=== PATIENT | male | born 1935 | race Hispanic/Latino ===

== ENCOUNTER 2018-03-22 07:09 | Inpatient (IN) | payer MEDICARE ==
[~2018-03-22] VITALS: Ht 185.4 cm; Wt 77.1 kg
[2018-03-22 07:48] LABS: BASOPHILS % (AUTO) 0.1 % (0.0-5.0); EOSINOPHILS % (AUTO) 0.4 % (0.0-8.0); HEMATOCRIT 42.3 % (42-54); LYMPHOCYTES % (AUTO) 1.2 % (21.0-51.0); MEAN CORPUSCULAR HEMOGLOBIN 30.7 pg (27.0-33.0); MEAN CORPUSCULAR HGB CONC 33.9 g/dL (32.0-36.0); MEAN CORPUSCULAR VOLUME 90.7 fL (79-99); MONOCYTES % (AUTO) 0.8 % (3.0-13.0); NEUTROPHILS % (AUTO) 97.5 % (40.0-77.0); PLATELET COUNT (AUTO) 177 K/uL (130-400); RED BLOOD CELL COUNT(AUTO) 4.67 MIL/uL (4.50-6.20); RED CELL DISTRIBUTION WIDTH 14.4 % (11.0-15.5); WHITE BLOOD COUNT (AUTO) 11.5 K/uL (4.8-10.8)
[2018-03-22 08:18] LABS: BILIRUBIN,TOTAL 1.2 mg/dL (0.2-1.0)
[2018-03-22 08:32] LABS: ALBUMIN 3.5 g/dL (3.5-5.0); CREATININE 1.8 mg/dL (0.5-1.5); TOTAL PROTEIN, SERUM 6.6 g/dL (6.0-8.3)
[2018-03-22 08:36] LABS: POTASSIUM 2.9 mmol/L (3.5-5.1)
[2018-03-22] MEDS ORDERED: LEVOFLOXACIN 500 MG/D5W 100 ML 100 ML ONE (10:22)
[2018-03-22] MEDS ORDERED: POTASSIUM BICARB/CIT AC 25 MEQ TABLET.EFF ONE (10:22)
[2018-03-22] MEDS ORDERED: METRONIDAZOLE 500MG/100ML BAG 100 ML ONE (10:23)
[2018-03-22] MEDS: SODIUM CHLORIDE 0.9% 1000ML 1,000 ML IV SCH ×2 (11:00→20:14)
[2018-03-22 11:59] LABS: APPEARANCE,URINE Clear (CLEAR); BILIRUBIN,URINE Negative (NEGATIVE); COLOR,URINE Yellow (YELLOW); GLUCOSE, URINE (UA) Negative (NEGATIVE); KETONES,URINE Negative (NEGATIVE); LEUKOCYTE ESTERASE ,URINE Negative (NEGATIVE); NITRATE,URINE Negative (NEGATIVE); OCCULT BLOOD,URINE Negative (NEGATIVE); PROTEIN,URINE Negative (NEGATIVE)
[2018-03-22 16:31] VITALS: BP 122/66
[2018-03-22] MEDS ORDERED: SODIUM CHLORIDE 0.9% 10 ML VIAL IVP SCH (17:00)
[2018-03-22] MEDS ORDERED: ACETAMINOPHEN 325 MG TAB PO PRN ×2 (17:00)
[2018-03-22] MEDS ORDERED: ONDANSETRON HCL 4 MG/2 ML VIAL IVP PRN (17:00)
[2018-03-22] MEDS ORDERED: LIDOCAINE HCL-MPF 1% 2ML VIAL IVP PRN (20:00)
[2018-03-22] MEDS ORDERED: HYDRALAZINE HCL 20 MG/ML VIAL IM PRN (20:00)
[2018-03-22] MEDS ORDERED: POTASSIUM CHLORIDE 10% ELIXIR 20 MEQ/15 ML UDCUP PO PRN (20:00)
[2018-03-22 20:05] VITALS: BP 128/69
[2018-03-22] MEDS: METRONIDAZOLE 500MG/100ML BAG 100 ML IVPB SCH (20:15)
[2018-03-22] MEDS: FAMOTIDINE/PF 20 MG/2 ML VIAL IV SCH (20:15)
[2018-03-22 20:52] LABS: CREATINE KINASE MB 2.2 ng/mL (0.5-3.6); TROPONIN I 0.09 ng/mL (0.00-0.06)
[2018-03-22] MEDS: POTASSIUM CHLORIDE 20MEQ/100ML 100 ML IV PRN (21:16)
[2018-03-22] MEDS: POTASSIUM CHLORIDE 20 MEQ ERTAB PO PRN (21:17)
[2018-03-22] MEDS ORDERED: FENO145T37 PO (21:30)
[2018-03-22] MEDS ORDERED: CETI-101 PO (21:30)
[2018-03-22] MEDS ORDERED: OMEP20CA10 PO (21:30)
[2018-03-22] MEDS ORDERED: ROSU20TA PO (21:30)
[2018-03-23] VITALS (7 sets, daily range): BP systolic 104–148; BP diastolic 57–87
[2018-03-23] MEDS: POTASSIUM CHLORIDE 20 MEQ ERTAB PO PRN (01:19)
[2018-03-23 04:33] LABS: HEMATOCRIT 38.2 % (42-54); MEAN CORPUSCULAR HEMOGLOBIN 31.6 pg (27.0-33.0); MEAN CORPUSCULAR HGB CONC 34.1 g/dL (32.0-36.0); MEAN CORPUSCULAR VOLUME 92.6 fL (79-99); PLATELET COUNT (AUTO) 141 K/uL (130-400); RED BLOOD CELL COUNT(AUTO) 4.12 MIL/uL (4.50-6.20); RED CELL DISTRIBUTION WIDTH 14.9 % (11.0-15.5); WHITE BLOOD COUNT (AUTO) 19.2 K/uL (4.8-10.8)
[2018-03-23 05:03] LABS: CREATINE KINASE MB 2.6 ng/mL (0.5-3.6); CREATININE 1.7 mg/dL (0.5-1.5); POTASSIUM 4.2 mmol/L (3.5-5.1); TROPONIN I 0.1 ng/mL (0.00-0.06)
[2018-03-23] MEDS: SODIUM CHLORIDE 0.9% 1000ML 1,000 ML IV SCH ×2 (06:18→20:43)
[2018-03-23] MEDS: FAMOTIDINE/PF 20 MG/2 ML VIAL IV SCH ×2 (09:09→20:44)
[2018-03-23] MEDS: METRONIDAZOLE 500MG/100ML BAG 100 ML IVPB SCH ×3 (09:09→20:43)
[2018-03-23] MEDS ORDERED: ACETAMINOPHEN-CODEINE 300/30MG TAB PO PRN (09:45)
[2018-03-23] MEDS ORDERED: MORPHINE SULFATE 2 MG/ML 1ML SYG IVP PRN (09:45)
[2018-03-23] MEDS: LEVOFLOXACIN 250 MG/D5W 50ML 50 ML IVPB SCH (10:33)
[2018-03-23] MEDS: CEFTRIAXONE SODIUM 1 GM IV SCH (14:45)
[2018-03-23] MEDS: FENOFIBRATE NANOCRYSTALLIZED 145 MG TAB PO SCH (20:39)
[2018-03-23] MEDS: ATORVASTATIN CALCIUM 10 MG TABLET PO SCH (20:39)
[2018-03-24] MEDS: SODIUM CHLORIDE 0.9% 1000ML 1,000 ML IV SCH (02:04)
[2018-03-24 03:30] VITALS: BP 146/75
[2018-03-24 06:12] LABS: HEMATOCRIT 37.4 % (42-54); MEAN CORPUSCULAR VOLUME 91.4 fL (79-99); NUCLEATED RED BLOOD CELLS 0.1 % (0.0-0.19); PLATELET COUNT (AUTO) 124 K/uL (130-400); RED BLOOD CELL COUNT(AUTO) 4.09 MIL/uL (4.50-6.20); RED CELL DISTRIBUTION WIDTH 14.7 % (11.0-15.5); WHITE BLOOD COUNT (AUTO) 13.1 K/uL (4.8-10.8)
[2018-03-24 06:16] LABS: CREATININE 1.5 mg/dL (0.5-1.5)
[2018-03-24] MEDS: POTASSIUM CHLORIDE 20MEQ/100ML 100 ML IV PRN (06:29)
[2018-03-24] MEDS: POTASSIUM CHLORIDE 20 MEQ ERTAB PO PRN ×4 (06:29→17:57)
[2018-03-24 07:07] LABS: LYMPHOCYTES % (MANUAL) 4 % (22-44); MAN.DIFF COMMENT-IMPRESSION MANUAL DIFFERENTIAL; MONOCYTES % (MANUAL) 8 % (2-9); PLATELET MORPHOLOGY COMMENT ADEQUATE; SEGMENTED NEUTROPHILS % 88 % (40-70)
[2018-03-24 07:30] VITALS: BP 140/72
[2018-03-24] MEDS: CETIRIZINE HCL 5 MG TABLET PO SCH (08:37)
[2018-03-24] MEDS: CEFTRIAXONE SODIUM 1 GM IV SCH (08:48)
[2018-03-24] MEDS: FAMOTIDINE/PF 20 MG/2 ML VIAL IV SCH ×2 (08:49→19:56)
[2018-03-24] MEDS: METRONIDAZOLE 500MG/100ML BAG 100 ML IVPB SCH ×3 (08:58→19:56)
[2018-03-24] MEDS: LEVOFLOXACIN 250 MG/D5W 50ML 50 ML IVPB SCH (10:35)
[2018-03-24 11:00] VITALS: BP 162/83
[2018-03-24 16:00] VITALS: BP 149/76
[2018-03-24] MEDS: ATORVASTATIN CALCIUM 10 MG TABLET PO SCH (19:56)
[2018-03-24] MEDS: FENOFIBRATE NANOCRYSTALLIZED 145 MG TAB PO SCH (19:56)
[2018-03-24 20:04] VITALS: BP 138/71
[2018-03-25 00:04] VITALS: BP 149/76
[2018-03-25 04:04] VITALS: BP 139/71
[2018-03-25 04:13] LABS: HEMATOCRIT 36.7 % (42-54); MEAN CORPUSCULAR HEMOGLOBIN 31.5 pg (27.0-33.0); MEAN CORPUSCULAR HGB CONC 34.7 g/dL (32.0-36.0); MEAN CORPUSCULAR VOLUME 90.9 fL (79-99); PLATELET COUNT (AUTO) 135 K/uL (130-400); RED BLOOD CELL COUNT(AUTO) 4.03 MIL/uL (4.50-6.20); RED CELL DISTRIBUTION WIDTH 14.7 % (11.0-15.5); WHITE BLOOD COUNT (AUTO) 9.1 K/uL (4.8-10.8)
[2018-03-25 04:23] LABS: CREATININE 1.4 mg/dL (0.5-1.5); POTASSIUM 3.1 mmol/L (3.5-5.1)
[2018-03-25] MEDS: POTASSIUM CHLORIDE 20 MEQ ERTAB PO PRN ×3 (05:21→13:25)
[2018-03-25 08:03] VITALS: BP 144/81
[2018-03-25] MEDS: CEFTRIAXONE SODIUM 1 GM IV SCH (09:01)
[2018-03-25] MEDS: CETIRIZINE HCL 5 MG TABLET PO SCH (09:01)
[2018-03-25] MEDS: FAMOTIDINE/PF 20 MG/2 ML VIAL IV SCH ×2 (09:01→20:45)
[2018-03-25] MEDS: METRONIDAZOLE 500MG/100ML BAG 100 ML IVPB SCH ×3 (09:02→20:45)
[2018-03-25 12:03] VITALS: BP 135/79
[2018-03-25] MEDS: MAGNESIUM 2GM PREMIX 50ML 50 ML IV SCH (13:25)
[2018-03-25 15:46] VITALS: BP 157/85
[2018-03-25 20:12] VITALS: BP 151/77
[2018-03-25] MEDS: FENOFIBRATE NANOCRYSTALLIZED 145 MG TAB PO SCH (20:48)
[2018-03-25] MEDS: ATORVASTATIN CALCIUM 10 MG TABLET PO SCH (20:48)
[2018-03-26] VITALS (7 sets, daily range): BP systolic 139–152; BP diastolic 64–78
[2018-03-26 05:13] LABS: HEMATOCRIT 37.2 % (42-54); MEAN CORPUSCULAR HEMOGLOBIN 31.8 pg (27.0-33.0); MEAN CORPUSCULAR HGB CONC 35.3 g/dL (32.0-36.0); MEAN CORPUSCULAR VOLUME 90.1 fL (79-99); PLATELET COUNT (AUTO) 160 K/uL (130-400); RED BLOOD CELL COUNT(AUTO) 4.13 MIL/uL (4.50-6.20); RED CELL DISTRIBUTION WIDTH 14.5 % (11.0-15.5); WHITE BLOOD COUNT (AUTO) 8.5 K/uL (4.8-10.8)
[2018-03-26 05:26] LABS: CREATININE 1.2 mg/dL (0.5-1.5); MAGNESIUM 1.7 mg/dL (1.80-2.40); POTASSIUM 3.3 mmol/L (3.5-5.1)
[2018-03-26 05:44] LABS: EOSINOPHILS % (MANUAL) 4 % (1-6); LYMPHOCYTES % (MANUAL) 17 % (22-44); MAN.DIFF COMMENT-IMPRESSION MANUAL DIFFERENTIAL; MONOCYTES % (MANUAL) 8 % (2-9); PLATELET MORPHOLOGY COMMENT ADEQUATE; SEGMENTED NEUTROPHILS % 71 % (40-70)
[2018-03-26] MEDS: MAGNESIUM 2GM PREMIX 50ML 50 ML IV SCH (06:29)
[2018-03-26] MEDS: POTASSIUM CHLORIDE 20 MEQ ERTAB PO PRN ×3 (06:29→19:16)
[2018-03-26] MEDS: CETIRIZINE HCL 5 MG TABLET PO SCH (08:36)
[2018-03-26] MEDS: FAMOTIDINE/PF 20 MG/2 ML VIAL IV SCH ×2 (08:36→19:42)
[2018-03-26] MEDS: CEFTRIAXONE SODIUM 1 GM IV SCH (08:36)
[2018-03-26] MEDS: METRONIDAZOLE 500MG/100ML BAG 100 ML IVPB SCH ×3 (08:36→19:42)
[2018-03-26] MEDS ORDERED: LEVOFLOXACIN 750 MG/D5W 150 ML 150 ML IV SCH (15:45)
[2018-03-26] MEDS: ATORVASTATIN CALCIUM 10 MG TABLET PO SCH (19:43)
[2018-03-26] MEDS: FENOFIBRATE NANOCRYSTALLIZED 145 MG TAB PO SCH (19:43)
[2018-03-27 04:00] VITALS: BP 147/71
[2018-03-27 05:22] LABS: CREATININE 1.2 mg/dL (0.5-1.5); MAGNESIUM 1.8 mg/dL (1.80-2.40); POTASSIUM 3.8 mmol/L (3.5-5.1)
[2018-03-27 08:22] VITALS: BP 156/82
[2018-03-27] MEDS: FAMOTIDINE/PF 20 MG/2 ML VIAL IV SCH (08:50)
[2018-03-27] MEDS: CETIRIZINE HCL 5 MG TABLET PO SCH (08:50)
[2018-03-27] MEDS: METRONIDAZOLE 500MG/100ML BAG 100 ML IVPB SCH ×2 (08:53→14:00)
[2018-03-27] MEDS ORDERED: LEVOFLOXACIN 500 MG/D5W 100 ML 100 ML IV SCH (09:00)
[2018-03-27 12:08] VITALS: BP 133/69
== END 2018-03-27 17:09 | disposition home or self-care (01) | DRG 872 ==
LOC: EDH 07:09 → EDHIP 09:50 → OBSVTOIN 09:50 → 4AH 15:45 → 4BH 03-23 20:42
PROVIDERS: ADMIT Family Medicine; ATTEND Family Medicine
DX: A41.9 Sepsis, unspecified organism (principal); N17.9 Acute kidney failure, unspecified; K57.92 Diverticulitis of intestine, part unspecified, without perforation or abscess without bleeding; B96.89 Other specified bacterial agents as the cause of diseases classified elsewhere; E78.5 Hyperlipidemia, unspecified; E87.6 Hypokalemia; I10 Essential (primary) hypertension; I25.10 Atherosclerotic heart disease of native coronary artery without angina pectoris; Z85.46 Personal history of malignant neoplasm of prostate; Z90.79 Acquired absence of other genital organ(s); B96.5 Pseudomonas (aeruginosa) (mallei) (pseudomallei) as the cause of diseases classified elsewhere
CPT/HCPCS: 36415; 70450; 71045; 74176; 80048; 80053; 81003; 82150; 82550; 82553; 83605; 83690; 83735; 83874; 83880; 84132; 84484; 85025; 85027; 87040; 87186; 93005; A4218; J0696; J1956; J3475; J3480; J3490

== ENCOUNTER 2022-07-26 03:16 | Observation (INO) | payer MEDICARE, OTHER ==
[~2022-07-26 03:16] MED LIST: CETI-89 PO; FENO145T26 PO; OMEP20CA12 PO; ROSU20TA23 PO
[2022-07-26 03:40] LABS: BASOPHILS % (AUTO) 0.3 % (0.0-5.0); HEMATOCRIT 46.1 % (42-54); LYMPHOCYTES % (AUTO) 7.7 % (21.0-51.0); MEAN CORPUSCULAR HEMOGLOBIN 29.6 pg (27.0-33.0); MEAN CORPUSCULAR HGB CONC 33.2 g/dL (32.0-36.0); MEAN CORPUSCULAR VOLUME 89.2 fL (79-99); NEUTROPHILS % (AUTO) 73.6 % (40.0-77.0); PLATELET COUNT (AUTO) 191 K/uL (130-400); RED BLOOD CELL COUNT(AUTO) 5.17 MIL/uL (4.50-6.20); RED CELL DISTRIBUTION WIDTH 14.7 % (11.0-15.5); WHITE BLOOD COUNT (AUTO) 7.4 K/uL (4.8-10.8)
[2022-07-26 03:43] LABS: APPEARANCE,URINE CLEAR (CLEAR); BILIRUBIN,URINE NEGATIVE (NEGATIVE); COLOR,URINE YELLOW (YELLOW); GLUCOSE, URINE (UA) NEGATIVE (NEGATIVE); KETONES,URINE NEGATIVE (NEGATIVE); LEUKOCYTE ESTERASE ,URINE NEGATIVE Leu/uL (NEGATIVE); NITRATE,URINE NEGATIVE (NEGATIVE); OCCULT BLOOD,URINE NEGATIVE (NEGATIVE); PROTEIN,URINE NEGATIVE (NEGATIVE); UROBILINOGEN,URINE 0.2 mg/dL (0.2-1.0)
[2022-07-26 03:49] LABS: CREATININE 1.7 mg/dL (0.5-1.5); POTASSIUM 3.1 mmol/L (3.5-5.1)
[2022-07-26 04:05] LABS: ALBUMIN 3.8 g/dL (3.5-5.0); TOTAL PROTEIN, SERUM 7.5 g/dL (6.0-8.3)
[2022-07-26] MEDS ORDERED: ACETAMINOPHEN 500 MG TABLET PO ONE (04:30)
[2022-07-26 04:34] LABS: ABG BASE EXCESS -3.2 mmol/L (-2.0-3.0); ABG HCO3 19.4 mmol/L (21.0-28.0); ABG OXYGEN SATURATION 94.3 % (95.0-99.0); ABG PCO2 29 mmHg (35-48)
[2022-07-26] MEDS ORDERED: ACETAMINOPHEN 325 MG TAB PO PRN ×2 (05:00)
[2022-07-26] MEDS ORDERED: LACTULOSE 20 GM/30 ML UDCUP PO PRN (05:00)
[2022-07-26] MEDS ORDERED: ALBUTEROL INHALER 90MCG/INH IH PRN (05:00)
[2022-07-26] MEDS ORDERED: POTASSIUM CHLORIDE 10MEQ/100ML 100 ML IV PRN (05:00)
[2022-07-26] MEDS ORDERED: ONDANSETRON 4MG INJ IV PRN (05:00)
[2022-07-26] MEDS ORDERED: KCL 20 MEQ ERTAB PO PRN (05:00)
[2022-07-26] MEDS ORDERED: LIDOCAINE HCL-MPF 1% 2ML VIAL IJ PRN (05:00)
[2022-07-26] MEDS: POTASSIUM CHLORIDE 10% ELIXIR 20 MEQ/15 ML UDCUP PO PRN ×3 (05:21→10:14)
[2022-07-26] MEDS ORDERED: FAMOTIDINE 20MG TAB PO SCH (09:00)
[2022-07-26 13:47] VITALS: BP 152/74
[2022-07-26] MEDS ORDERED: 0.9%NACL 1000ML 1,000 ML IV SCH (14:30)
[2022-07-26] MEDS ORDERED: SODIUM CHLORIDE 3% FOR INHALATION 4 ML/AMP VIAL.NEB IH ONE (14:35)
[2022-07-26 14:45] LABS: CREATININE 1.5 mg/dL (0.5-1.5); POTASSIUM 3.4 mmol/L (3.5-5.1)
== END 2022-07-26 16:00 | disposition home or self-care (01) ==
LOC: EDH 03:16 → INTOOBSV 04:44 → EDHIP 04:44
PROVIDERS: ADMIT Hospitalist; ATTEND Hospitalist
DX: U07.1 COVID-19 (principal); R65.10 Systemic inflammatory response syndrome (SIRS) of non-infectious origin without acute organ dysfunction; E87.6 Hypokalemia; I10 Essential (primary) hypertension; R41.82 Altered mental status, unspecified; I25.10 Atherosclerotic heart disease of native coronary artery without angina pectoris; H91.90 Unspecified hearing loss, unspecified ear; R53.81 Other malaise; Z85.46 Personal history of malignant neoplasm of prostate; Z79.899 Other long term (current) drug therapy; Z98.890 Other specified postprocedural states
CPT/HCPCS: 99285; 82550; 83874; 84484; 80053; 82803; 85025; 85378; 87040 ×2; 87804 ×2; 83605; 86140; 81003; 36415; 87635; 71045; 93005; 36600; 94640; 84145; G0378 ×4; C9803; 80048; 94760